=== PATIENT | male | born 1965 | race Caucasian/White ===

== ENCOUNTER 2017-01-06 11:20 | Emergency (ER) | payer BC ==
[~2017-01-06] VITALS: Ht 175.3 cm; Wt 81.6 kg
--- NOTE | 2017-01-06 11:33 | NUR ---
Placed in room 8. Placed on groundwater monitoring technician, blood pressure machine and pulse oximeter. To gown for exam. Side rails up. Report given to Marcie.
[2017-01-06 11:34] VITALS: BP_SYST 219
--- NOTE | 2017-01-06 11:34 | NUR ---
ER at bedside examining patient.
--- NOTE | 2017-01-06 11:35 | NUR ---
Pt brought by self, Alert and oriented x4,anxious,pt c/o high blood pressure since yesterday also c/o 2/10 mild pressure on the chest ,respirations even and unlabored, cap refill<3,skin pink and warm, ambulatory, pedal and radial pulses equal and strong.
[2017-01-06 11:51] LABS: BASOPHILS # (AUTO) 0.1 K/uL (0.0-0.2); EOSINOPHILS # (AUTO) 0.3 K/uL (0.0-0.4); EOSINOPHILS % (AUTO) 5.4 % (0.0-4.0); HEMATOCRIT 47.2 % (36-54); HEMOGLOBIN 15.7 g/dL (14.0-18.0); LYMPHOCYTES # (AUTO) 1.6 K/uL (1.0-5.5); LYMPHOCYTES % (AUTO) 26.1 % (20.5-51.5); MEAN CORPUSCULAR HEMOGLOBIN 30 pg (27-31); MEAN CORPUSCULAR HGB CONC 33 % (32-36); MEAN CORPUSCULAR VOLUME 89 fL (79.0-98.0); MONOCYTES # (AUTO) 0.5 K/uL (0.0-1.0); MONOCYTES % (AUTO) 7.7 % (1.7-9.3); NEUTROPHILS # (AUTO) 3.8 K/uL (1.8-7.7); NEUTROPHILS % (AUTO) 59.8 % (40.0-70.0); PLATELET COUNT (AUTO) 290 K/uL (130-430); RED CELL DISTRIBUTION WIDTH 12.3 % (9.0-15.0); WHITE BLOOD COUNT (AUTO) 6.3 K/uL (4.8-10.8)
[2017-01-06 12:04] LABS: PROTHROMBIN TIME 10.4 SECS (9.5-12.5)
[2017-01-06] MEDS ORDERED: METOPROLOL TARTRATE 25 MG TABLET PO ONE (12:15)
[2017-01-06 12:30] LABS: CHLORIDE 102 mmol/L (98-107); CREATININE 1.22 mg/dL (0.55-1.30); GLUCOSE 109 mg/dL (70-99); POTASSIUM 3.9 mmol/L (3.5-5.1); SODIUM SERUM 134 mmol/L (136-145); UREA NITROGEN, BLOOD 16 mg/dL (8-21)
[2017-01-06 12:35] LABS: ANION GAP < 3 (5-15); GFR AFRICAN AMERICAN 80 mL/min (>90)
[2017-01-06 12:40] LABS: ALANINE AMINOTRANSFERASE 57 U/L (12-78); ASPARTATE AMINOTRANSFERASE 37 U/L (10-37); CHOLESTEROL 302 mg/dL (<200); HDL CHOLESTEROL 42 mg/dL (>45); LDL CHOLESTEROL 199 mg/dL (<100); TOTAL BILIRUBIN 0.4 mg/dL (0.0-1.0); TOTAL PROTEIN, SERUM 8.3 g/dL (6.4-8.3); TRIGLYCERIDES 425 mg/dL (30-150)
[2017-01-06 13:45] VITALS: BP_SYST 176
== END 2017-01-06 13:45 | disposition home or self-care (01) ==
LOC: SED 11:20
DX: I16.0 Hypertensive urgency (principal); E78.5 Hyperlipidemia, unspecified
CPT/HCPCS: 36415; 71010; 80053; 80061; 83880; 84484; 85025; 85610-TC; 85730-TC; 93005; 99285